=== PATIENT | female | born 1970 | race Two or more races ===

== ENCOUNTER → 2019-11-20 | Outpatient (CLI) | payer OTHER ==
--- NOTE | 2019-11-21 19:42 | RAD ---
History: Routine screening. Technique: Bilateral digital mammographic routine views were obtained with CAD - computer aided detection. Comparison: 03/11/2017, 01/02/2019. Findings: Breast Tissue Density C : The breast tissue is heterogeneously dense. Scattered fibroglandular elements may obscure underlying pathology. There are no suspicious masses, microcalcifications or areas of architectural distortion. Impression: No suspicious findings. BI-RADS Category 1: Negative. Normal interval followup. Your mammogram demonstrates that you have dense breast tissue, which could hide abnormalities, and if you have other risk factors for breast cancer that have been identified, you might benefit from supplemental screening tests that may be suggested by your ordering physician. Dense breast tissue, in and of itself, is a relatively common condition. This information is not provided to cause undue concern, but rather to raise your awareness and to promote discussion with your physician regarding the presence of other risk factors, in addition to dense breast tissue. A report of your mammography results will be sent to you and your physician. You should contact your physician if you have any questions or concerns regarding this report. A mammogram does not have 100% sensitivity and therefore a negative imaging study should not delay further work up of a suspicious abnormality. The patient will receive a letter with the results in the mail. Patient information is entered into the reminder system with a target due date for the next screening mammogram. The patient will receive a reminder. "Our facility is accredited by the [employer] Mammography [employer]." BI-RADS 1 -- negative findings (within normal)
== END | disposition home or self-care (01) ==
LOC: LAB 14:40
PROVIDERS: ATTEND Nurse Practitioner Women's Health
DX: Z12.31 Encounter for screening mammogram for malignant neoplasm of breast (principal); Z11.3 Encounter for screening for infections with a predominantly sexual mode of transmission; N64.89 Other specified disorders of breast
CPT/HCPCS: 36415; 77067; 86592; 86703; 86803

== ENCOUNTER → 2020-02-26 | Outpatient (CLI) | payer OTHER ==
--- NOTE | 2020-02-26 11:20 | RAD ---
ABDOMINAL RADIOGRAPH (AP) History: Abdominal pain Comparison: None. Findings: No obvious free air. No dilated air-filled loops of bowel are seen. Bowel gas pattern is nonobstructive. No abnormal calcifications. No acute osseous abnormality. IMPRESSION: Nonobstructive bowel gas pattern. Electronically signed by: Jake Osuna MD (02/26/2020 11:17 AM) [id number]
== END | disposition home or self-care (01) ==
LOC: PMG 10:45
PROVIDERS: ATTEND Physician Assistant
DX: K59.00 Constipation, unspecified (principal); R10.84 Generalized abdominal pain; R11.10 Vomiting, unspecified
CPT/HCPCS: 74019

== ENCOUNTER 2020-04-10 09:21 | Emergency (ER) | payer OTHER ==
[~2020-04-10] VITALS: Ht 167.6 cm; Wt 50.0 kg
--- NOTE | 2020-04-10 09:51 | PHYS DOC ---
General Adult EDM: Chief Complaint: NAUSEA/VOMITING/DIARRHEA HPI: HPI: Patient is a 49-year-old female who presented to ER today for evaluation abdominal pain, nausea and vomiting. Symptoms started at 3 PM yesterday. Patient had a small bowel movement this morning, but feel that her belly is distended. Patient denies any fever. Patient has some colon Problem that she has been seen by the GI doctor, Dr. Vargas. Patient had a CT scan of the abdomen and pelvis on April 07, 2020, showed she had a large mass about 5 cm on the right hemicolon area. Review of Systems: Review of Systems: Constitutional: Denies fever or chills Eyes: Denies change in visual acuity HENT: Denies nasal congestion or sore throat Respiratory: Denies cough or shortness of breath Cardiovascular: Denies chest pain or edema GI: Positive for abdominal pain, nausea and vomiting. : Denies dysuria Musculoskeletal: Denies back pain or joint pain Integument: Denies rash Neurologic: Denies headache, focal weakness or sensory changes Endocrine: Denies polyuria or polydipsia Lymphatic: Denies swollen glands Psychiatric: Denies depression or anxiety Heart Score: Risk Factors: Risk Factors: DM, Current or recent (<one month) smoker, HTN, HLP, family history of CAD, obesity. Risk Scores: Score 0 - 3: 2.5% MACE over next 6 weeks - Discharge Home Score 4 - 6: 20.3% MACE over next 6 weeks - Admit for Clinical Observation Score 7 - 10: 72.7% MACE over next 6 weeks - Early Invasive Strategies Current Medications: Current Meds: Current Medications Medications (Trade) Dose Ordered Sig/[facility] Start Time Stop Time Status Last Admin Dose Admin Fentanyl Citrate (Fentanyl 2ml Vial) 50 mcg 1X ONCE 04/10/20 09:45 04/10/20 09:46 UNV Ondansetron HCl (Zofran) 4 mg 1X ONCE 04/10/20 09:45 04/10/20 09:46 UNV Sodium Chloride 1,000 ml @ 1,000 mls/hr 1X ONCE 04/10/20 09:45 04/10/20 10:44 UNV Physical Exam: PE: Constitutional: Well developed, well nourished, no acute distress, non-toxic appearance. [] HENT: Normocephalic, atraumatic, bilateral external ears normal, oropharynx moist, no oral exudates, nose normal. [] Eyes: PERRLA, EOMI, conjunctiva normal, no discharge. [] Neck: Normal range of motion, no tenderness, supple, no stridor. [] Cardiovascular:Heart rate regular rhythm, no murmur [] Lungs & Thorax: Bilateral breath sounds clear to auscultation [] Abdomen: Abdomen is distended and tender to palpation, hyperactive bowel sound. Skin: Warm, dry, no erythema, no rash. [] Back: No tenderness, no CVA tenderness. [] Extremities: No tenderness, no cyanosis, no clubbing, ROM intact, no edema. [] Neurologic: Alert and oriented X 3, normal motor function, normal sensory function, no focal deficits noted. [] Psychologic: Affect normal, judgement normal, mood normal. [] EKG: EKG: [] Radiology/Procedures: Radiology/Procedures: [][place] [address] IMAGING REPORT Signed PATIENT: SAURABH COYLE: [id number] : 1970 LOCATION: ER AGE: 49 SEX: F EXAM STATUS: REG ER ORD. PHYSICIAN: ROBERTA PRO DO REASON: abdominal pain, nausea, vomiting PROCEDURE: CT ABD PELV W/ IV CONTRST ONLY CT ABD PELV W/ IV CONTRST ONLY History: Reason: abdominal pain, nausea, vomiting / Spl. Instructions: / History: Technique: Noncontrast examination of the abdomen and pelvis. Coronal and sagittal reconstructions were performed. Exposure: One or more of the following individualized dose reduction techniques were utilized for this examination: 1. Automated exposure control 2. Adjustment of the mA and/or kV according to patient size 3. Use of iterative reconstruction technique. Comparison: None Findings: Lower chest: No consolidation or pleural effusion. Abdomen and pelvis: Small right hepatic hypodensities 6 mm and 7 mm. too small to further characterize. The spleen, adrenal glands, and pancreas are unremarkable. Slight increased density within the gallbladder. No gallbladder wall thickening. Minimal pericholecystic fluid. Unremarkable noncontrast appearance of the kidneys. No hydronephrosis. Decompressed urinary bladder. Severe proximal transverse colonic wall thickening with adjacent inflammatory changes. There is moderately dilated proximal colon involving the ascending colon and cecum with fluid. Decompressed distal colonic bowel loops. Additionally there is moderately dilated fluid-filled distal small bowel loops. Normal appendix. Small mesenteric and retroperitoneal lymph nodes. No pathologically enlarged lymph nodes. Small pelvic free fluid. Small fat-containing umbilical hernia. Bones: No pathologic osseous lesions. Impression: 1. Severe focal proximal transverse colonic wall thickening with adjacent inflammatory changes, may represent infectious or inflammatory process although findings concerning for malignancy. Recommend colonoscopy to further evaluate. 2. Dilated fluid-filled proximal colonic and distal small bowel with transition point at the transverse colonic wall thickening, concerning for obstruction. 3. Small indeterminate right hepatic lobe hypodensities. Depending on colonoscopy results, MRI can further evaluate. Electronically signed by: Wesley Ocampo DO (04/10/2020 11:30 AM) [facility] DICTATED AND SIGNED BY: WESLEY OCAMPO DO DATE: 04/10/20 1130 CC: PREMA SMITH; ROBERTA PRO DO ~ Course & Med Decision Making: Course & Med Decision Making Pertinent Labs and Imaging studies reviewed. (See chart for details) Patient is a 49-year-old female who was evaluated in the ER for abdominal pain, nausea vomiting, she was found to have small bowel obstruction. Patient might have a lesion in her ascending colon area. Patient would need general surgery and GI evaluation. There are none of these services available at this hospital, this physician discussed with the hospitalist on-call Dr. Alcaraz who recommended to transfer patient to [facility] AND HE WILL BE THE ACCEPTING PHYSICIAN THERE. Mayela Disclaimer: Mayela Disclaimer: This electronic medical record was generated, in whole or in part, using a voice recognition dictation system. Departure Departure: Impression: Primary Impression: Small bowel obstruction Additional Impression: Abdominal mass, right lower quadrant Disposition: XFER T-TRM HOSP (TRANSFERRED TO [facility] FOR GI AND SURGERY EVALUATION, ACCEPTED BY DR. BAH) Condition: STABLE Referrals: PREMA SMITH (PCP) ROBERTA PRO DO Apr 10, 2020 09:50
[2020-04-10] MEDS: ONDANSETRON PF 4 MG/2 ML VIAL. IVP ONE ×2 (09:59→15:07)
[2020-04-10] MEDS: IV NORMAL SALINE 1,000ML 1,000 ML IV ONE ×2 (10:00→12:00)
[2020-04-10 10:03] LABS: BASO % 0 % (0-3); EOS % 0 % (0-3); HEMATOCRIT 36.6 % (36.0-47.0); HEMOGLOBIN 11.5 g/dL (12.0-15.5); LYMPH # 0.4 x10^3/uL (1.0-4.8); LYMPH % 4 % (24-48); MEAN CORPUSCULAR HEMOGLOBIN 25 pg (25-35); MEAN CORPUSCULAR HGB CONC 32 g/dL (31-37); MEAN CORPUSCULAR VOLUME 78 fL (79-100); MONO # 0.6 x10^3/uL (0.0-1.1); MONO % 7 % (0-9); NEUT # 7.9 x10^3uL (1.8-7.7); NEUT % 89 % (31-73); PLATELET COUNT 424 x10^3/uL (140-400); RED BLOOD COUNT 4.71 x10^6/uL (3.50-5.40); RED CELL DISTRIBUTION WIDTH 18.3 % (11.5-14.5); WHITE BLOOD COUNT 8.8 x10^3/uL (4.0-11.0)
[2020-04-10 10:15] LABS: CALCIUM 9.6 mg/dL (8.5-10.1); GFR 58.7; POTASSIUM 3.9 mmol/L (3.5-5.1)
[2020-04-10 10:20] LABS: ALBUMIN 4.1 g/dL (3.4-5.0); TOTAL BILIRUBIN 0.5 mg/dL (0.2-1.0); TOTAL PROTEIN 8.1 g/dL (6.4-8.2)
[2020-04-10] MEDS ORDERED: IOHEXOL 300 MG/ML 75 ML VIAL. IV ONE (10:45)
--- NOTE | 2020-04-10 11:33 | RAD ---
CT ABD PELV W/ IV CONTRST ONLY History: Reason: abdominal pain, nausea, vomiting / Spl. Instructions: / History: Technique: Noncontrast examination of the abdomen and pelvis. Coronal and sagittal reconstructions were performed. Exposure: One or more of the following individualized dose reduction techniques were utilized for this examination: 1. Automated exposure control 2. Adjustment of the mA and/or kV according to patient size 3. Use of iterative reconstruction technique. Comparison: None Findings: Lower chest: No consolidation or pleural effusion. Abdomen and pelvis: Small right hepatic hypodensities 6 mm and 7 mm. too small to further characterize. The spleen, adrenal glands, and pancreas are unremarkable. Slight increased density within the gallbladder. No gallbladder wall thickening. Minimal pericholecystic fluid. Unremarkable noncontrast appearance of the kidneys. No hydronephrosis. Decompressed urinary bladder. Severe proximal transverse colonic wall thickening with adjacent inflammatory changes. There is moderately dilated proximal colon involving the ascending colon and cecum with fluid. Decompressed distal colonic bowel loops. Additionally there is moderately dilated fluid-filled distal small bowel loops. Normal appendix. Small mesenteric and retroperitoneal lymph nodes. No pathologically enlarged lymph nodes. Small pelvic free fluid. Small fat-containing umbilical hernia. Bones: No pathologic osseous lesions. Impression: 1. Severe focal proximal transverse colonic wall thickening with adjacent inflammatory changes, may represent infectious or inflammatory process although findings concerning for malignancy. Recommend colonoscopy to further evaluate. 2. Dilated fluid-filled proximal colonic and distal small bowel with transition point at the transverse colonic wall thickening, concerning for obstruction. 3. Small indeterminate right hepatic lobe hypodensities. Depending on colonoscopy results, MRI can further evaluate. Electronically signed by: Wesley Ocampo DO (04/10/2020 11:30 AM) [facility]
[2020-04-10 12:51] LABS: BACTERIA,URINE 0 /HPF (0-FEW); BILIRUBIN,URINE NEG (NEG); CLARITY,URINE HAZY; COLOR,URINE YELLOW; GLUCOSE,URINE NEG (NEG); NITRITE,URINE NEG (NEG); SQUAMOUS EPITHELIAL CELL,UR MOD /LPF; UROBILINOGEN,URINE 0.2 mg/dL (0.2 mg/dL)
[2020-04-10 14:03] VITALS: BP 104/43
[2020-04-10] MEDS ORDERED: ONDANSETRON PF 4 MG/2 ML VIAL. ONE (15:05)
== END 2020-04-10 15:14 | disposition short-term general hospital (02) ==
LOC: ER 09:21
DX: K56.609 Unspecified intestinal obstruction, unspecified as to partial versus complete obstruction (principal); R19.03 Right lower quadrant abdominal swelling, mass and lump
CPT/HCPCS: 36415; 74176; 80053; 81001; 83690; 85025; 85610; 85730; 96361; 96374; 96375; 96376; 99285; J2405; J3010; 74177; J7030

== ENCOUNTER → 2020-12-02 | Outpatient (CLI) | payer OTHER ==
--- NOTE | 2020-12-02 14:08 | RAD ---
EXAMINATION: MG 2D BILAT SCREENING CLINICAL HISTORY: Routine screening TECHNIQUE: Digital craniocaudal and mediolateral oblique views of the bilateral breasts obtained. COMPARISON: 11/20/2019, 01/08/2016, 02/27/2015 BREAST COMPOSITION: The breasts are extremely dense, which lowers the sensitivity of mammography. FINDINGS: 7 mm developing asymmetry right upper-outer quadrant in the posterior third at 11:00 position approxi mately 5.5 cm from the nipple, best appreciated on MLO view. No evidence of suspicious mass in the le ft breast. No evidence of suspicious calcifications or areas of architectural distortion bilaterally. IMPRESSION: Small developing asymmetry right upper outer quadrant. BI-RADS ASSESSMENT: Category 0: Incomplete - Need Additional Imaging Evaluation and/or Prior Mammograms for Comparison RECOMMENDATION: Recommend further evaluation with spot compression views of the right breast and possible targeted ri ght breast ultrasound if indicated. PQRS compliance statement - Patient information was entered into a reminder system with a target due date for the next mammogram. "Our facility is accredited by the [employer] Mammography [employer]." Electronically signed by: Kostas Earl DO (12/02/2020 2:05 PM) [id number]
== END ==
LOC: MAMMO 09:08
PROVIDERS: ATTEND Physician Assistant
DX: Z12.31 Encounter for screening mammogram for malignant neoplasm of breast (principal)
CPT/HCPCS: 77067

== ENCOUNTER → 2020-12-03 | Outpatient (CLI) | payer OTHER ==
--- NOTE | 2020-12-03 15:58 | RAD ---
EXAMINATION: MG DIAGNOSTICUNILAT MAMMO, US BREAST RT CLINICAL HISTORY: Follow-up developing asymmetry right upper outer quadrant TECHNIQUE: Digital true lateral and spot compression views of the right breast obtained as well as ta rgeted right breast ultrasound. COMPARISON: Bilateral screening mammogram 12/02/2020 BREAST COMPOSITION: The breasts are extremely dense, which lowers the sensitivity of mammography. FINDINGS: RIGHT BREAST DIAGNOSTIC MAMMOGRAM: Circumscribed mass in the right upper-outer quadrant persists upon spot compression. RIGHT BREAST ULTRASOUND: At 11:00 position 5 cm from the nipple, there is a round predominantly circumscribed mass with an are a of slightly angular margin suggested measuring up to 5 x 6 x 6 mm. The mass demonstrates posterior shadowing and no convincing internal vascularity. Central punctate nonshadowing echogenicity within t he liver seen artifact suggestive of a small calculus. This corresponds to the above-stated mammograp hic finding and could represent a benign process such as a fibroadenoma, but there are a few suspicio us features present. Normal sonographic appearance of the right axilla. IMPRESSION: 6 mm mass in the right upper-outer quadrant with a few suspicious features. BI-RADS ASSESSMENT: Category 4: Suspicious fort Malignancy RECOMMENDATION: Recommend ultrasound-guided percutaneous biopsy for further evaluation. PQRS compliance statement - Patient information was entered into a reminder system with a target due date for the next mammogram. "Our facility is accredited by the [employer] Mammography Program." Electronically signed by: Kostas Earl DO (12/03/2020 3:55 PM) [id number]
== END ==
LOC: MAMMO 13:49
PROVIDERS: ATTEND Physician Assistant
DX: R92.2 Inconclusive mammogram (principal); N63.11 Unspecified lump in the right breast, upper outer quadrant
CPT/HCPCS: 76641; 77065

== ENCOUNTER → 2022-01-05 | Outpatient (CLI) | payer OTHER ==
--- NOTE | 2022-01-05 15:08 | RAD ---
INDICATION: 51 years of age asymptomatic female patient presents for screening mammography. History o f benign bilateral breast biopsies. No personal or family history of breast cancer. TECHNIQUE: Full field craniocaudal and mediolateral oblique images of both breasts were obtained usi ng digital technique with tomosynthesis and also analyzed with computer-aided detection software. COMPARISON: Prior mammographic imaging dating back to 11/20/2019 BREAST COMPOSITION: Category D: The breasts are extremely dense. This may lower the sensitivity of m ammography. FINDINGS: No suspicious masses, microcalcifications or architectural distortion is present to suggest malignanc y in either breast. Stable nodular bilateral parenchymal pattern. Postbiopsy clip in the right superi or breast, middle depth. The visualized axillae are unremarkable. IMPRESSION: No mammographic evidence of malignancy. RECOMMENDATION: Annual screening mammography is recommended, unless clinically indicated sooner based on symptoms or change in physical exam. BIRADS 2: BENIGN This study was interpreted with the benefit of Computerized Aided Detection (CAD). ?Your patient's mammogram demonstrates that she has dense breast tissue (breast density category C or D), which could hide abnormalities, and if she has other risk factors for breast cancer that have be en identified, she might benefit from supplemental screening tests that may be suggested by you as he r ordering physician. Dense breast tissue, in and of itself, is a relatively common condition. Theref ore, this information is not provided to cause undue concern, but rather to raise your awareness and to promote discussion with your patient regarding the presence of other risk factors, in addition to dense breast tissue. Your patient's mammography results will be sent to her. Patient information is entered into the reminder system with a target due date for the next screening mammogram. Mammography is the most sensitive method for finding small breast cancers, but it does not detect the m all and is not a substitute for careful clinical examination. A negative mammogram does not negate a clinically suspicious finding and should not result in delay in biopsying a clinically suspicious a bnormality. "Our facility is accredited by the [employer] Mammography Program." Electronically signed by: Anselmo Leija DO (01/05/2022 3:06 PM) [id number]
== END ==
LOC: MAMMO 10:46
PROVIDERS: ATTEND Physician Assistant
DX: Z12.31 Encounter for screening mammogram for malignant neoplasm of breast (principal)
CPT/HCPCS: 77063; 77067